=== PATIENT | female | born 1970 | race Caucasian/White ===

== ENCOUNTER 2023-09-23 06:45 | Day surgery (SDC) | payer OTHER, SELFPAY ==
[2023-09-18 07:13] VITALS: BMI 36.3
--- NOTE | 2023-09-19 15:12 | HO.ANESPROP2 ---
Documented by User: Dhara Tellez NP 09/19/23 15:13 HPI - Anesthesia Eval Consult details Narrative: 53yo F for Right Cataract Extraction IOL Insertion Medically cleared No previous cataract on record PMFSH Past Medical History Medical History Cataract Prediabetes Obesity Sleep apnea Thyroid disease Depression Anxiety Allergic rhinitis ALL (acute lymphoblastic leukemia of infant) ADD (attention deficit disorder) Surgical History Surgical History Hx of cholecystectomy Social History Social History Patient Tobacco Use Status: Former Tobacco user Quit Date: 2003 Tobacco use type: Cigarette Are you DNR?: No Advance Directives: No Advance Directives Information Provided: Yes Advance Directives on File: No Recently lost weight without trying: No Eating poorly because of decreased appetite: No Nutrition Risks: No Nutritional Risk : No Meds Allergies Allergy/AdvReac Type Severity Reaction Status Date / Time No Known Allergies Allergy Verified 09/23/23 09:57 Home Medications ?Medication ?Instructions ?Recorded ?Confirmed ?Last Taken ?Type Lactobacillus acidophilus and 1 cap PO DAILY 09/18/23 09/18/23 Unknown History rhamnosus 10 billion cell capsule (Digestive Health Probiotic) biotin 5,000 mcg disintegrating 5,000 mcg PO DAILY 09/18/23 09/18/23 Unknown History tablet cholecalciferol (vitamin D3) 25 25 mcg PO DAILY 09/18/23 Unknown History mcg (1,000 unit) tablet (Vitamin D3) levocetirizine 5 mg tablet 5 mg PO BEDTIME 09/18/23 09/18/23 Unknown History levothyroxine 125 mcg tablet 125 mcg PO BID 09/18/23 09/23/23 Unknown History multivitamin 1 tab PO DAILY 09/18/23 09/18/23 Unknown History Exam Height,Weight and Vital Signs: Height 5 ft 2.99 in Weight 93 kg Assessment and Plan Assessment Anesthesia Assessment: Chart Reviewed Documented by User: Brittaney Tony MD 09/23/23 10:12 [facility] Past Medical History Medical History Cataract Prediabetes Obesity Sleep apnea Thyroid disease Depression Anxiety Allergic rhinitis ALL (acute lymphoblastic leukemia of ) ADD (attention deficit disorder) Surgical History Surgical History Hx of cholecystectomy History of Problems with Anesthesia: No Social History Social History Patient Tobacco Use Status: Former Tobacco user Quit Date: 2003 Tobacco use type: Cigarette Are you DNR?: No Advance Directives: No Advance Directives Information Provided: Yes Advance Directives on File: No Recently lost weight without trying: No Eating poorly because of decreased appetite: No Nutrition Risks: No Nutritional Risk : No Meds Allergies Allergy/AdvReac Type Severity Reaction Status Date / Time No Known Allergies Allergy Verified 09/23/23 09:57 Home Medications ?Medication ?Instructions ?Recorded ?Confirmed ?Last Taken ?Type Lactobacillus acidophilus and 1 cap PO DAILY 09/18/23 09/18/23 Unknown History rhamnosus 10 billion cell capsule (Digestive Health Probiotic) biotin 5,000 mcg disintegrating 5,000 mcg PO DAILY 09/18/23 09/18/23 Unknown History tablet cholecalciferol (vitamin D3) 25 25 mcg PO DAILY 09/18/23 Unknown History mcg (1,000 unit) tablet (Vitamin D3) levocetirizine 5 mg tablet 5 mg PO BEDTIME 09/18/23 09/18/23 Unknown History levothyroxine 125 mcg tablet 125 mcg PO BID 09/18/23 09/23/23 Unknown History multivitamin 1 tab PO DAILY 09/18/23 09/18/23 Unknown History Exam Airway Mallampati Class: II TM Dist: >3cm Neck ROM: Full Loose/Missing/Broken Teeth: No Heart: RRR Lungs: CTA Assessment and Plan Assessment Anesthesia Assessment: Anesthesia Plan Discussed Final Anesthetic Review History of Problems with Anesthesia: No NPO: Yes ASA Class: II Final Preanesthetic Review: Meds/Allgs Chart Reviewed, Consent Obtained/Reviewed and Anes Risks/Benef Reviewed Patient Risk: Low Procedure Risk: Low Anesthetic Plan Anesthetic Plan: MAC: Disposition: Standard PACU
[2023-09-23] MEDS: Tetracaine HCl/PF 0.5% Oph Sol 4 ML DROPS 1 DROP EYE-RIGHT (10:04)
[2023-09-23] MEDS: Tropicamide 1 % Ophth Sol 3 ML BTL 1 DROP EYE-RIGHT ×3 (10:05→10:23)
[2023-09-23] MEDS: Ketorolac Tromethamine 0.5% Op 10 ML DROPS 1 DROP EYE-RIGHT ×3 (10:08→10:26)
[2023-09-23] MEDS: Phenylephrine HCL 2.5% Oph SoL 2 ML BOTTLE 1 DROP EYE-RIGHT ×3 (10:11→10:29)
[2023-09-23] MEDS: Lactated Ringers 500 ML 50 ML IV (10:29)
--- NOTE | 2023-09-23 10:44 | P.PCNO_ITS ---
Ophthalmology Procedure Procedure Date of Service: 09/23/23 Ophthalmology Viscoelastic: Healon Duet Dual Pack Pro Ophthalmology Lenses: IOL Acrysof MP - MA60AC (19.5) Procedure Notes: PREOPERATIVE DIAGNOSIS: Decreased visual acuity right eye secondary to cataract POSTOPERATIVE DIAGNOSIS: Same PROCEDURE: Right cataract extraction with intraocular lens insertion SURGEON: [place] العراقي M.D. ANESTHESIA: Topical/MAC ESTIMATED BLOOD LOSS: None COMPLICATIONS: None After obtaining informed consent, the patient was brought to the operating room suite and placed in the supine position. After adequate sedation per anesthesia, topical drops of Tetracaine were given to the right eye. The eye was then prepped and draped in the usual sterile fashion. The operating room microscope was then positioned over the operative eye and a lid speculum placed. A paracentesis was created. Viscoelastic was then instilled into the anterior chamber. A three plane incision was then created temporally, utilizing a 2.85 mm keratome. Capsulotomy forceps were then utilized to create a circular tear capsulotomy. Hydrodissection and hydrodelineation were carried out until adequate mobilization of the nucleus occurred. Phacoemulsification was then utilized to remove the dense central nu cleus followed by removal of the cortical material utilizing the automated aspiration irrigation unit. Viscoelastic was instilled into the posterior capsular bag followed by placement of a posterior chamber intraocular lens without difficulty. The residual Viscoelastic was then removed utilizing the automated IA machine. The wound was checked and found to be watertight. The patient tolerated the procedure well and the lid speculum was removed. Intracameral injection of Vigamox 0.1 mL followed by a subtenon injection of Kenalog-40 0.2 mL were administered. The patient will be seen in the a.m.
--- NOTE | 2023-09-23 10:44 | MHC.SHP ---
Pre-Procedural Eval Section A - 24 Hr Update-Section A only Date of Service: 09/23/23 The patient is an INPATIENT: No Changes since office visit: No Cold of Flu in the past 2 weeks, No New Medical Problems, No Changes in Medication and No Patient answered all questions The patient has been examined within 24 hours of the surgical procedure. The History & Physical has been completed within 30 days and I have reviewed it.: Yes Section B - Complete if H&P > 30 days Chief Complaint: Age-related nuclear cataract, right eye Allergies: Allergies Allergy/AdvReac Type Severity Reaction Status Date / Time No Known Allergies Allergy Verified 09/23/23 09:57 Plan Diagnosis/Plan: Unchanged I have reviewed the history and physical and performed a pertinent physical examination on my patient. No changes have occurred unless specified. Time Spent With Patient Time: Total time managing care of this patient today ____ minutes.
[2023-09-23 11:20] VITALS: BP 125/80; PULSE 67; RESP 17; TEMP 36.1; O2SAT 95
== END 2023-09-23 11:29 | disposition home or self-care (01) ==
PROVIDERS: PCP Nurse Practitioner Adult Health; Visit Provider Ophthalmology
PROC: (CPT 66985; principal; 2023-09-23 09:50)
DX: H25.11 Age-related nuclear cataract, right eye (principal); H54.7 Unspecified visual loss; H52.13 Myopia, bilateral; E07.9 Disorder of thyroid, unspecified; F32.A Depression, unspecified; F41.9 Anxiety disorder, unspecified; Z85.6 Personal history of leukemia; Z79.899 Other long term (current) drug therapy; Z87.891 Personal history of nicotine dependence
CPT/HCPCS: 66984; J2250; J3010; J3301; V2630

== ENCOUNTER 2025-05-03 13:10 | Outpatient (REF) | payer OTHER, SELFPAY | END 2025-05-03 13:11 | disposition home or self-care (01) | LOC: HO.BBR 13:10 | PROVIDERS: PCP Nurse Practitioner Adult Health; Visit Provider Internal Medicine Hematology | DX: D75.1 Secondary polycythemia (principal) | CPT/HCPCS: 85014; 85018; 99195 ==

== ENCOUNTER 2025-05-11 10:08 | Outpatient (REF) | payer OTHER, SELFPAY ==
--- OUTSIDE RECORDS SUMMARY | 2025-05-11 12:33 | XMS_ITS | Patient Health Record ---
Author Organization [facility] Address [address] [place] [address] Care Team Providers Care Business Functional Analyst Name Role Phone Kamron BRYAN, Lissa Primary Care Provider Briana Zaldivar Unavailable [phone] Reason For Referral No Information Medications Medication SIG (Take, Route, Fr equency, Duration) Notes Start Date End Date Status Anaprox DS 550 MG 1 tablet Orally Q 8H OURS PRN; Duration: 14 days 04/13/2015 Not-Taking Aygestin 5 MG 1 tablet Orally TWIC E DAILY; Duration: 30 days 03/25/2015 Not-Taking Multivitamins 1 ORAL daily; Duration: -3 [place] 2 Active Social History Tobacco Use: Social History Observation Description Date Details (start date - stop date) Former Smoker NA - NA Tobacco Use/Smoking Question Answer Notes Are you a former smoker How long has it been since you last smoked? > 10 years Alcohol Screen (Audit-C) Question Answer Notes Did you have a drink contain ing alcohol in the past year? Yes How often did you have a dri nk containing alcohol in the past year? 2 to 3 times a week (3 points) How many drinks did you have on a typical day when you were drinking in the past year? 1 or 2 drinks (0 point) Points 3 Section Notes: MARITAL STATUS: OCCUPATION: employed full-time SEXUAL ACTIVITY: monogamous relationship. Heterosexual Smoking: None ALCOHOL: occasional alcohol OTHER DRUGS: no Problems Problem Type SNOMED Code ICD Code Onset Dates Problem Status W/U Status Risk Notes Problem Abnormal vaginal bleeding (126360342) Other disorder of menstruation and other abnormal bleeding from female genital tract (626.8) Active confirmed Problem Hypothyroidism (36659452) Unspecified hypothyroidism (244.9) Active confirmed Major Problem Obesity (924097404) Obesity, unspecified (278.00) Active confirmed Major Problem Gynecological examination normal (879178860889493) Routine gynecological examination (V72.31) Active confirmed Diag Problem Contraception care education (110023004) Other general counseling and advice for contraceptive management (V25.09) Active confirmed Diag Plan Of Treatment Pending Test Test Name Order Date Hemoglobin 03/21/2015 MAMMOGRAM, SCREENING 06/14/2014 Urinalysis 06/23/2015 MM Digital Mammo Screening 06/23/2015 Insurance Providers Payer Name Payer Address Payer Phone Subscriber Number Group Number Insured Name Patient Relationship to Insured Coverage Start Date Coverage End Date [facility] [id number] [employer] [facility] [address] [place] [address] FERN ELDRIDGE Self - patient is the insured Medical (General) History Medical History History ICD Code Hematocolpos N89.7 Hypothyroidism, unspecified E03.9 Other specified abnormal uterine and vag inal bleeding N93.8 Other obesity E66.8 Surgical History Surgery Date(Month/Year) Cholecystectomy Right renal surgery to correct ureteral blockage Hysteroscopy, Frac D&C 03/2015 Novasure Endometiral Ablation 03/2015 Hospitalization History Reason Date(Month/Year) child see surgical hx
== END 2025-05-11 10:09 ==
LOC: HO.BBR 10:08
PROVIDERS: PCP Nurse Practitioner Adult Health; Visit Provider Internal Medicine Hematology
DX: D75.1 Secondary polycythemia (principal)
CPT/HCPCS: 85014; 85018; 99195

== ENCOUNTER 2025-05-17 10:00 | Outpatient (REF) | payer OTHER, SELFPAY | END 2025-05-17 10:01 | disposition home or self-care (01) | LOC: HO.BBR 10:00 | PROVIDERS: PCP Nurse Practitioner Adult Health; Visit Provider Internal Medicine Hematology | DX: D75.1 Secondary polycythemia (principal) | CPT/HCPCS: 85018 ==

== ENCOUNTER 2025-05-25 15:01 | Outpatient (REF) | payer OTHER, SELFPAY ==
--- OUTSIDE RECORDS SUMMARY | 2025-05-25 18:33 | XMS_ITS | Patient Health Record ---
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 Name Role Phone Kamron BRYAN, Lissa Primary Care Provider Briana Zaldivar Unavailable [phone] Reason For Referral No Information Medications Medication [...] Status Risk Notes Problem Abnormal vaginal bleeding (095497559) Other disorder of menstruation and other abnormal bleeding from female genital tract (626.8) Active confirmed Problem Hypothyroidism (04552111) Unspecified hypothyroidism (244.9) Active confirmed Major Problem Obesity (584597827) Obesity, unspecified (278.00) Active confirmed Major Problem Gynecological examination normal (502387139722315) Routine gynecological examination (V72.31) Active confirmed Diag Problem Contraception care education (510752643) Other general counseling and advice for contraceptive management (V25.09) Active confirmed Diag Plan Of Treatment Pending Test Test Name Order Date Hemoglobin 03/21/2015 MAMMOGRAM, SCREENING 06/14/2014 Urinalysis 06/23/2015 MM Digital Mammo Screening 06/23/2015 Insurance Providers Payer Name Payer Address Payer Phone Subscriber Number Group Number Insured Name Patient Relationship to Insured Coverage Start Date Coverage End Date [employer] [id number] [employer] [facility] [address] [place] [address] FERN ELDRIDGE Self - patient is the [...]
== END 2025-05-25 15:02 | disposition home or self-care (01) ==
LOC: HO.BBR 15:01
PROVIDERS: PCP Nurse Practitioner Family; Visit Provider Internal Medicine Hematology
DX: D75.1 Secondary polycythemia (principal)
CPT/HCPCS: 85014; 85018; 99195